=== PATIENT | female | born 1985 | race Two or more races ===

== ENCOUNTER 2018-07-27 10:22 | Inpatient (IN) | payer SELFPAY ==
[~2018-07-27] VITALS: Ht 154.9 cm; Wt 88.4 kg
[2018-07-27] MEDS: SODIUM CHLORIDE 0.9% 1,000 ML IV SCH (04:15)
[2018-07-27 11:43] LABS: Basophils # (auto) 0 uL; Basophils % (auto) 0.2 % (0.0-2.0); Eosinophils # (auto) 0 uL; Hematocrit 44.9 % (36.0-46.0); Hemoglobin 15.2 g/dL (12.2-16.2); Lymphocytes # (auto) 1.7 uL; Lymphocytes % (auto) 9.1 % (10.0-50.0); Mean Corpuscular Hemoglobin 30.2 pg (28.0-32.0); Mean Corpuscular Hgb Conc. 33.8 g/dL (32.0-36.0); Mean Corpuscular Volume 89.4 fL (80.0-100.0); Monocytes # (auto) 1.2 uL; Monocytes % (auto) 6.2 % (0.0-12.0); Neutrophils # (auto) 16.3 uL; Neutrophils % (auto) 84.5 % (37.0-80.0); Platelet Count (auto) 361 10^3/uL (140-450); Red Blood Cells 5.02 10^6/uL (4.0-5.20); White Blood Cell 19.2 10^3/uL (4.4-10.8)
[2018-07-27 11:47] LABS: Calcium 9.1 mg/dL (8.5-10.1); Potassium 3.7 mmol/L (3.5-5.1)
[2018-07-27 11:50] LABS: BUN/Creatinine Ratio 11.3; Bilirubin, Total 0.9 mg/dL (0.2-1.0); Total Protein 7.9 g/dL (6.4-8.2)
[2018-07-27] MEDS ORDERED: ONDANSETRON HCL 4 MG/2 ML VIAL IV ONE (16:30)
[2018-07-27] MEDS ORDERED: KETOROLAC TROMETH 30 MG/ML 1ML VIAL IV ONE (16:30)
[2018-07-27 16:31] LABS: Urine Bacteria FEW /hpf (None Seen); Urine Blood TRACE /uL (Negative); Urine Specific Gravity 1.029 (1.001-1.035); Urine WBC 1 /hpf (0 - 5)
[2018-07-27] MEDS ORDERED: SODIUM CHLORIDE 0.9% 1,000 ML IV ONE ×2 (17:15→20:00)
[2018-07-27] MEDS ORDERED: MORPHINE SULFATE 4 MG/ML SYR/VIAL IV ONE (19:30)
[2018-07-27] MEDS ORDERED: CIPROFLOXACIN 400MG/200ML 200 ML IV ONE (20:00)
[2018-07-27] MEDS ORDERED: metroNIDAZOLE 500MG/100ML 100 ML IV ONE (20:00)
[2018-07-27] MEDS ORDERED: HYDROcodone-ACET 10/325MG TAB PO ONE (20:45)
[2018-07-27] MEDS ORDERED: MORPHINE SULF INJ 2 MG/ML SYRINGE 1ML ONE (22:12)
[2018-07-27] MEDS ORDERED: PANTOPRAZOLE 40 MG/10 ML VIAL IV ONE (22:30)
[2018-07-27] MEDS ORDERED: HYDROcodone-ACET 5/325MG TAB PO PRN (22:30)
[2018-07-27] MEDS ORDERED: ONDANSETRON HCL 4 MG/2 ML VIAL IV PRN (22:30)
[2018-07-27] MEDS ORDERED: ONDANSETRON HCL 4 MG/2 ML VIAL ONE (23:00)
[2018-07-27 23:14] LABS: Alcohol, Urine < 3.0 mg/dL (0-5); Barbiturate Scree,Urine NEGATIVE (NEGATIVE); Benzodiazephine Screen, Urine NEGATIVE (NEGATIVE); Cannabinoid Screen, Urine POSITIVE (NEGATIVE); Cocaine Screen, Urine NEGATIVE (NEGATIVE); Opiate Scree,Urine NEGATIVE (NEGATIVE); Phencyclidine Screen, Urine NEGATIVE (NEGATIVE)
[2018-07-27 23:35] LABS: Amphetamine Screen, Urine NEGATIVE (NEGATIVE)
[2018-07-28] VITALS (7 sets, daily range): BP systolic 122–134; BP diastolic 65–79
[2018-07-28] MEDS: metroNIDAZOLE 500MG/100ML 100 ML IV SCH ×3 (05:29→21:29)
--- NOTE | 2018-07-28 05:30 | NUR ---
PATIENT ARRIVED FROM ER. PATIENT AWAKE AND ALERT. COMPLAINS OF GENERAL PAIN IN ABDOMEN. NO S/S OF DISTRESS. PATIENT ORIENTED TO ROOM. BED LOCKED IN LOWEST POSITION WITH CALL LIGHT IN REACH.
--- NOTE | 2018-07-28 07:40 | NUR ---
OPENING PATIENT AWAKE IN BED, BED IN LOWEST POSITION, CALL LIGHT WITHIN REACH. NO DISTRESS NOTED AT THIS TIME SOME C/O PAIN; HOWEVER WILL NEED TO REASSESS TO CHECK LAST TIME MEDICATION WAS GIVEN AND GIVE ORDERED. CURRENTLY A GI CONSULT PENDING BLOOD CULT PENDING WBC 19.2 NEUTROPHILS 84.5 UA POSITIVE FOR PROTEIN AND KETONES TOX SCREEN POSITIVE FOR CANNIBUS CURRENTLY ON CLEAR LIQUID DIET, ALERT, WILL F/U WITH MORNING ASSESSMENT
[2018-07-28 08:05] LABS: Basophils # (auto) 0 uL; Basophils % (auto) 0.1 % (0.0-2.0); Eosinophils # (auto) 0 uL; Eosinophils % (auto) 0.2 % (0.0-7.0); Hematocrit 40.4 % (36.0-46.0); Hemoglobin 13.5 g/dL (12.2-16.2); Lymphocytes % (auto) 15.8 % (10.0-50.0); Mean Corpuscular Hemoglobin 30.2 pg (28.0-32.0); Mean Corpuscular Hgb Conc. 33.4 g/dL (32.0-36.0); Mean Corpuscular Volume 90.4 fL (80.0-100.0); Monocytes # (auto) 0.6 uL; Monocytes % (auto) 5.1 % (0.0-12.0); Neutrophils % (auto) 78.8 % (37.0-80.0); Platelet Count (auto) 305 10^3/uL (140-450); Red Blood Cells 4.47 10^6/uL (4.0-5.20); Red Cell Distribution Width 13.8 % (11.8-14.3); White Blood Cell 12.7 10^3/uL (4.4-10.8)
[2018-07-28 08:21] LABS: INR 1.08 (0.9-1.15); Partial Thromboplastin Time 36.3 sec (23.78-33.04); Prothrombin Time 11.5 sec (9.27-12.13)
[2018-07-28 08:23] LABS: Albumin 3.2 g/dL (3.4-5.0); Calcium 8.5 mg/dL (8.5-10.1); Potassium 3.6 mmol/L (3.5-5.1)
[2018-07-28 08:27] LABS: BUN/Creatinine Ratio 15.9; Bilirubin, Total 1.4 mg/dL (0.2-1.0)
--- NOTE | 2018-07-28 09:30 | NUR ---
MD KATELYN NARVAEZ ,TALKS ABOUT COLONOSCOPY FOR TOMORROW, AND TO START STOOL STUDY.
[2018-07-28] MEDS ORDERED: GOLYTELY 4L KIT PO ONE (09:45)
[2018-07-28] MEDS: MORPHINE SULFATE 4 MG/ML SYR/VIAL IV PRN ×2 (09:53→21:29)
[2018-07-28] MEDS: LEVOFLOXACIN 500MG 100 ML IV SCH (09:55)
[2018-07-28] MEDS: SODIUM CHLORIDE 0.9% 1,000 ML IV SCH (09:55)
[2018-07-28] MEDS: PANTOPRAZOLE 40 MG/10 ML VIAL IV SCH (09:57)
[2018-07-28] MEDS: SOD CHL 0.9%/ KCL 20MEQ 1,000 ML IV SCH (14:00)
[2018-07-29 05:04] VITALS: BP 107/55
[2018-07-29 05:24] LABS: Basophils # (auto) 0 uL; Basophils % (auto) 0.3 % (0.0-2.0); Eosinophils # (auto) 0 uL; Eosinophils % (auto) 0.3 % (0.0-7.0); Hematocrit 36.8 % (36.0-46.0); Hemoglobin 12.3 g/dL (12.2-16.2); Lymphocytes # (auto) 2.6 uL; Lymphocytes % (auto) 21.7 % (10.0-50.0); Mean Corpuscular Hemoglobin 30.2 pg (28.0-32.0); Mean Corpuscular Hgb Conc. 33.5 g/dL (32.0-36.0); Monocytes # (auto) 0.7 uL; Neutrophils # (auto) 8.5 uL; Neutrophils % (auto) 71.7 % (37.0-80.0); Platelet Count (auto) 294 10^3/uL (140-450); Red Blood Cells 4.08 10^6/uL (4.0-5.20); Red Cell Distribution Width 13.9 % (11.8-14.3); White Blood Cell 11.8 10^3/uL (4.4-10.8)
[2018-07-29 05:31] LABS: BUN/Creatinine Ratio 10.1; Potassium 3.9 mmol/L (3.5-5.1)
[2018-07-29] MEDS ORDERED: GOLYTELY 4L KIT PO ONE (06:00)
[2018-07-29] MEDS: SOD CHL 0.9%/ KCL 20MEQ 1,000 ML IV SCH ×3 (06:42→13:45)
[2018-07-29] MEDS: metroNIDAZOLE 500MG/100ML 100 ML IV SCH ×3 (06:42→21:49)
[2018-07-29 07:14] LABS: Urine Bacteria FEW /hpf (None Seen); Urine Blood TRACE /uL (Negative); Urine Mucus FEW (None Seen); Urine Specific Gravity 1.015 (1.001-1.035); Urine WBC 5 /hpf (0 - 5)
[2018-07-29 08:00] VITALS: BP 128/77
--- NOTE | 2018-07-29 08:16 | NUR ---
opening patient in bed, awake, bed in lowest position, call light within reach. no distress noted at this time patient has finished about 2/3 of go lytely upon my shift start this morning but patient report a clear stool checklist complete, consents signed, awaiting procedure with md kasey owen f/u with morning assessment
[2018-07-29] MEDS: PANTOPRAZOLE 40 MG/10 ML VIAL IV SCH (10:00)
[2018-07-29] MEDS: LEVOFLOXACIN 500MG 100 ML IV SCH (10:00)
[2018-07-29] MEDS ORDERED: diphenhdrAMINE HCL 50 MG/1 ML VL ONE (11:04)
[2018-07-29] MEDS ORDERED: SODIUM CHLORIDE LOCK 10 ML ONE (11:04)
[2018-07-29] MEDS: fentaNYL CITRATE 100 MCG/2 ML VL ONE ×3 (11:16→11:30)
[2018-07-29] MEDS: MIDAZOLAM HCL 5 MG/ML-1ML VIAL ONE ×3 (11:16→11:30)
[2018-07-29 12:00] VITALS: BP 108/52
[2018-07-29 16:00] VITALS: BP 112/63
[2018-07-29] MEDS: MORPHINE SULFATE 4 MG/ML SYR/VIAL IV PRN (19:07)
[2018-07-29 22:00] VITALS: BP 133/77
[2018-07-30 05:00] VITALS: BP 94/54
[2018-07-30] MEDS: metroNIDAZOLE 500MG/100ML 100 ML IV SCH ×3 (05:34→14:28)
--- NOTE | 2018-07-30 07:45 | NUR ---
Opening Shift Note Assumed care of patient, awake and alert. No S/S of distress, denied of abd pain at this time. Instructed on POC and to call for assist PRN, bed locked in the lowest position, call light within easy reach, will continue to monitor for changes Q1hr and PRN.
[2018-07-30 08:00] VITALS: BP 109/68
[2018-07-30 08:42] VITALS: BP 109/68
--- NOTE | 2018-07-30 09:45 | NUR ---
DR. CRUZ AT BEDSIDE.
[2018-07-30] MEDS: SOD CHL 0.9%/ KCL 20MEQ 1,000 ML IV SCH (10:57)
[2018-07-30] MEDS: LEVOFLOXACIN 500MG 100 ML IV SCH (10:57)
[2018-07-30] MEDS: PANTOPRAZOLE 40 MG/10 ML VIAL IV SCH (10:58)
[2018-07-30 13:00] VITALS: BP 114/65
--- NOTE | 2018-07-30 16:32 | NUR ---
Discharge instructions given as ordered. Pt does not have insurance or pcp, urgent care coupon given. All questions and concerns addressed. Patient verbalized understanding. Medication reconciliation form completed and copy given to patient. IV removed with catheter intact, pressure dressing applied. Patient taken to vehicle via wheelchair with all personal belongings, accompanied by staff and family member. No distress noted at time of departure.
== END 2018-07-30 16:30 | disposition home or self-care (01) | DRG 872 ==
LOC: ER 10:22 → OVERFLOW 22:26 → CENTRAL 07-28 05:19
PROVIDERS: ADMIT Internal Medicine; ATTEND Internal Medicine
PROC: 0DJD8ZZ Inspection of Lower Intestinal Tract, Via Natural or Artificial Opening Endoscopic (ICD-10-PCS; principal; 2018-07-29 11:14)
DX: A41.9 Sepsis, unspecified organism (principal); E87.2 Acidosis; E66.01 Morbid (severe) obesity due to excess calories; F12.90 Cannabis use, unspecified, uncomplicated; K52.9 Noninfective gastroenteritis and colitis, unspecified; K76.0 Fatty (change of) liver, not elsewhere classified; M19.90 Unspecified osteoarthritis, unspecified site; M25.78 Osteophyte, vertebrae; M48.061 Spinal stenosis, lumbar region without neurogenic claudication; Z80.0 Family history of malignant neoplasm of digestive organs; Z83.3 Family history of diabetes mellitus; Z68.36 Body mass index [BMI] 36.0-36.9, adult
CPT/HCPCS: 36415; 74176; 80048; 80053; 80307; 81001; 83690; 84702; 85025; 85610; 85730; 87040; 87045; 87081; 87493; 87899; 93005; 96361; 96365; 96375; C9113; G0378; J1885; J1956; J2250; J2405; J3490

== ENCOUNTER 2022-02-28 10:00 | Emergency (ER) | payer OTHER ==
[~2022-02-28] VITALS: Ht 154.9 cm; Wt 81.3 kg
[2022-02-28 10:51] LABS: Basophils # (auto) 0.1 10 ^3/uL (0-0.2); Basophils % (auto) 0.9 % (0.0-2.0); Eosinophils # (auto) 0 10 ^3/uL (0-0.8); Eosinophils % (auto) 0.5 % (0.0-7.0); Hematocrit 43.6 % (36.0-46.0); Hemoglobin 14.4 g/dL (12.2-16.2); Lymphocytes # (auto) 2.6 10 ^3/uL (0.4-5.4); Lymphocytes % (auto) 31.2 % (10.0-50.0); Mean Corpuscular Hemoglobin 29.8 pg (28.0-32.0); Mean Corpuscular Volume 90.5 fL (80.0-100.0); Monocytes # (auto) 0.6 10 ^3/uL (0-1.3); Monocytes % (auto) 6.6 % (0.0-12.0); Neutrophils # (auto) 5.1 10 ^3/uL (1.6-8.6); Neutrophils % (auto) 60.8 % (37.0-80.0); Red Blood Cells 4.81 10^6/uL (4.0-5.20); White Blood Cell 8.4 10^3/uL (4.4-10.8)
[2022-02-28 10:56] LABS: Urine Bacteria FEW /hpf (None Seen); Urine Blood 3+ /uL (Negative); Urine Mucus FEW (None Seen); Urine WBC 43 /hpf (0 - 5)
[2022-02-28 12:50] VITALS: BP 126/64
[2022-02-28] MEDS ORDERED: NITR-87 PO (12:53)
== END 2022-02-28 12:58 | disposition home or self-care (01) ==
LOC: ER 10:00
DX: O20.0 Threatened abortion (principal); O23.41 Unspecified infection of urinary tract in pregnancy, first trimester; O99.321 Drug use complicating pregnancy, first trimester; F12.10 Cannabis abuse, uncomplicated; Z3A.01 Less than 8 weeks gestation of pregnancy
CPT/HCPCS: 36415; 76801; 76817; 81001; 84702; 85025